=== PATIENT | female | born 1955 | race Caucasian/White ===

== ENCOUNTER → 2017-08-22 | Outpatient (CLI) | payer OTHER ==
--- NOTE | 2017-08-24 09:27 | MM ---
Reason for exam: screening (asymptomatic). Last mammogram was performed 1 year and 8 months ago. History: Patient is postmenopausal. Took hormonal contraceptives for 20 years beginning at age 18. Physical Findings: A clinical breast exam by your physician is recommended on an annual basis and results should be correlated with mammographic findings. MG 3D Screening Mammo W/Cad Bilateral CC and MLO view(s) were taken. Prior study comparison: December 23, 2015, bilateral MG 3d screening mammo w/cad. December 12, 2014, bilateral MG screening mammo w CAD. The breast tissue is heterogeneously dense. This may lower the sensitivity of mammography. Finding: There is a stable typically benign mass in the left breast dating back to 2012. No suspicious abnormality. No significant changes in finding since December 23, 2015 and December 12, 2014. ASSESSMENT: Benign, BI-RAD 2 RECOMMENDATION: Routine screening mammogram of both breasts in 1 year.
== END | disposition home or self-care (01) ==
LOC: RADMAMWWP 14:18
PROVIDERS: ATTEND Family Medicine
DX: Z12.31 Encounter for screening mammogram for malignant neoplasm of breast (principal)
CPT/HCPCS: 77063; G0202

== ENCOUNTER 2017-10-22 05:26 | Inpatient (IN) | payer OTHER ==
[2017-10-22] MEDS ORDERED: ONDANSETRON 4 MG/2 ML VIAL IVP STA (05:27)
[2017-10-22] MEDS ORDERED: SODIUM CHLORIDE 0.9% 500 ML IV STA (05:27)
--- NOTE | 2017-10-22 05:30 | ED ---
General Adult HPI - General Stated complaint: Abdominal Pain Time Seen by Provider: 10/22/17 05:26 Source: RN notes reviewed - History of Present Illness Initial comments: This is a 62-year-old female has past medical history significant for ulcerative colitis. Patient states yesterday she started having some diarrhea and early this morning she started having blood per rectum. Patient states she was quite a bit of blood more than she's ever had in the past. Patient states she has significant abdominal cramping but no specific area of pain. Patient denies any fever chills. Patient denies any dysuria hematuria urinary frequency. Patient denies any chest pain or difficulty breathing or shortness of breath. Patient denies any recent fever chills or cough. Patient denies lightheadedness or dizziness. - Related Data Home Medications Medication Instructions Recorded Confirmed ALPRAZolam [Xanax] 0.25 mg PO BID PRN 12/19/14 10/22/17 Atorvastatin [Lipitor] 80 mg PO HS 12/19/14 10/22/17 DULoxetine HCL [Cymbalta] 60 mg PO DAILY@1700 12/19/14 10/22/17 Multivitamins, Thera [Multivitamin 1 tab PO DAILY 12/19/14 10/22/17 (formulary)] Dicyclomine [Bentyl] 20 mg PO QID 01/21/15 10/22/17 Doxycycline Hyclate [Doxycycline 20 mg PO BID 01/21/15 10/22/17 Hyclate] Allergies Allergy/AdvReac Type Severity Reaction Status Date / Time No Known Allergies Allergy Verified 10/22/17 05:30 Review of Systems ROS Statement: Those systems with pertinent positive or pertinent negative responses have been documented in the HPI. ROS Other: All systems not noted in ROS Statement are negative. Past Medical History Past Medical History: COPD, Hyperlipidemia Additional Past Medical History / Comment(s): COLITIS, HX OF BLOOD IN STOOL. History of Any Multi-Drug Resistant Organisms: None Reported Past Surgical History: Tonsillectomy, Tubal Ligation Additional Past Surgical History / Comment(s): COLONOSCOPY Past Anesthesia/Blood Transfusion Reactions: No Reported Reaction Smoking Status: Current every day smoker - Past Family History Mother Additional Family Medical History / Comment(s): bipolar/manic depressive Father Family Medical History: Prostate Disorder General Exam - General Exam Comments Initial Comments: GENERAL: Patient is well-developed and well-nourished. Patient is nontoxic and well- hydrated and is in mild distress. ENT: Neck is soft and supple. No significant lymphadenopathy is noted. Oropharynx is clear. Moist mucous membranes. EYES: The sclera were anicteric and conjunctiva were pink and moist. Extraocular movements were intact and pupils were equal round and reactive to light. Eyelids were unremarkable. PULMONARY: Unlabored respirations. Good breath sounds bilaterally. No audible rales rhonchi or wheezing was noted. CARDIOVASCULAR: There is a regular rate and rhythm without any murmurs gallops or rubs. ABDOMEN: Soft and nontender with normal bowel sounds. No palpable organomegaly was noted. There is no palpable pulsatile mass. SKIN: Skin is clear with no lesions or rashes and otherwise unremarkable. NEUROLOGIC: Patient is alert and oriented x3. Cranial nerves II through XII are grossly intact. Motor and sensory are also intact. Normal speech, volume and content. Symmetrical smile. MUSCULOSKELETAL: Normal extremities with adequate strength and full range of motion. No lower extremity swelling or edema. No calf tenderness. LYMPHATICS: No significant lymphadenopathy is noted PSYCHIATRIC: Normal psychiatric evaluation. Normal interpersonal interactions appears functionally intact in deals appropriately with others. No signs of depression. Patient is mildly anxious Course Vital Signs 10/22/17 05:27 Temperature 98.8 F Pulse Rate 89 Respiratory 22 Rate Blood Pressure 150/65 O2 Sat by Pulse 99 Oximetry Medical Decision Making - Lab Data Result diagrams: 10/22/17 05:35 10/22/17 05:35 Lab Results 10/22/17 10/22/17 10/22/17 Range/Units 05:35 05:35 05:35 WBC 18.8 H (3.8-10.6) k/uL RBC 4.89 (3.80-5.40) m/uL Hgb 15.4 (11.4-16.0) gm/dL Hct 45.9 (34.0-46.0) % MCV 93.9 (80.0-100.0) fL MCH 31.4 (25.0-35.0) pg MCHC 33.5 (31.0-37.0) g/dL RDW 12.0 (11.5-15.5) % Plt Count 221 (150-450) k/uL Neutrophils % 93 % Lymphocytes % 4 % Monocytes % 2 % Eosinophils % 1 % Basophils % 0 % Neutrophils # 17.5 H (1.3-7.7) k/uL Lymphocytes # 0.8 L (1.0-4.8) k/uL Monocytes # 0.3 (0-1.0) k/uL Eosinophils # 0.1 (0-0.7) k/uL Basophils # 0.0 (0-0.2) k/uL PT (9.0-12.0) sec INR (<1.2) APTT (22.0-30.0) sec Sodium 139 (137-145) mmol/L Potassium 4.1 (3.5-5.1) mmol/L Chloride 102 (98-107) mmol/L Carbon Dioxide 21 L (22-30) mmol/L Anion Gap 16 mmol/L BUN 21 H (7-17) mg/dL Creatinine 0.76 (0.52-1.04) mg/dL Est GFR (MDRD) Af Amer >60 (>60 ml/min/1.73 sqM) Est GFR (MDRD) Non-Af >60 (>60 ml/min/1.73 sqM) Glucose 149 H (74-99) mg/dL Calcium 10.1 (8.4-10.2) mg/dL Total Bilirubin 1.0 (0.2-1.3) mg/dL AST 26 (14-36) U/L ALT 35 (9-52) U/L Alkaline Phosphatase 68 (38-126) U/L Total Creatine Kinase 97 (30-135) U/L CK-MB (CK-2) 1.1 (0.0-2.4) ng/mL CK-MB (CK-2) Rel Index 1.1 Troponin I <0.012 (0.000-0.034) ng/mL Total Protein 7.0 (6.3-8.2) g/dL Albumin 4.3 (3.5-5.0) g/dL 10/22/17 Range/Units 05:35 WBC (3.8-10.6) k/uL RBC (3.80-5.40) m/uL Hgb (11.4-16.0) gm/dL Hct (34.0-46.0) % MCV (80.0-100.0) fL MCH (25.0-35.0) pg MCHC (31.0-37.0) g/dL RDW (11.5-15.5) % Plt Count (150-450) k/uL Neutrophils % % Lymphocytes % % Monocytes % % Eosinophils % % Basophils % % Neutrophils # (1.3-7.7) k/uL Lymphocytes # (1.0-4.8) k/uL Monocytes # (0-1.0) k/uL Eosinophils # (0-0.7) k/uL Basophils # (0-0.2) k/uL PT 10.6 (9.0-12.0) sec INR 1.1 (<1.2) APTT 22.4 (22.0-30.0) sec Sodium (137-145) mmol/L Potassium (3.5-5.1) mmol/L Chloride (98-107) mmol/L Carbon Dioxide (22-30) mmol/L Anion Gap mmol/L BUN (7-17) mg/dL Creatinine (0.52-1.04) mg/dL Est GFR (MDRD) Af Amer (>60 ml/min/1.73 sqM) Est GFR (MDRD) Non-Af (>60 ml/min/1.73 sqM) Glucose (74-99) mg/dL Calcium (8.4-10.2) mg/dL Total Bilirubin (0.2-1.3) mg/dL AST (14-36) U/L ALT (9-52) U/L Alkaline Phosphatase (38-126) U/L Total Creatine Kinase (30-135) U/L CK-MB (CK-2) (0.0-2.4) ng/mL CK-MB (CK-2) Rel Index Troponin I (0.000-0.034) ng/mL Total Protein (6.3-8.2) g/dL Albumin (3.5-5.0) g/dL Disposition Clinical Impression: Colitis, GI bleed Disposition: ADMITTED IP TO THIS [facility] Referrals: Poncho Vaca MD [Primary Care Provider] - 1-2 days Time of Disposition: 06:24
[2017-10-22 05:43] LABS: Basophils % (A) 0 %; Eosinophils # (A) 0.1 k/uL (0-0.7); Eosinophils % (A) 1 %; HCT 45.9 % (34.0-46.0); HGB 15.4 gm/dL (11.4-16.0); Lymphocytes # (A) 0.8 k/uL (1.0-4.8); Lymphocytes % (A) 4 %; MCH 31.4 pg (25.0-35.0); MCHC 33.5 g/dL (31.0-37.0); MCV 93.9 fL (80.0-100.0); Mean Platelet Volume 7.6; Monocytes # (A) 0.3 k/uL (0-1.0); Monocytes % (A) 2 %; Neutrophils # (A) 17.5 k/uL (1.3-7.7); Neutrophils % (A) 93 %; Platelet Count 221 k/uL (150-450); RBC 4.89 m/uL (3.80-5.40); WBC 18.8 k/uL (3.8-10.6)
[2017-10-22 05:51] LABS: ALT 35 U/L (9-52); AST 26 U/L (14-36); Albumin 4.3 g/dL (3.5-5.0); Alkaline Phosphatase 68 U/L (38-126); Anion Gap 16 mmol/L; Blood Urea Nitrogen 21 mg/dL (7-17); Calcium 10.1 mg/dL (8.4-10.2); Carbon Dioxide 21 mmol/L (22-30); Chloride 102 mmol/L (98-107); Glucose 149 mg/dL (74-99); INR 1.1 (<1.2); Partial Thromboplastin Time 22.4 sec (22.0-30.0); Potassium 4.1 mmol/L (3.5-5.1); Prothrombin Time 10.6 sec (9.0-12.0); Sodium 139 mmol/L (137-145)
[2017-10-22 06:00] LABS: Creatine Kinase 97 U/L (30-135)
[2017-10-22 06:13] LABS: Creatine Kinase MB 1.1 ng/mL (0.0-2.4); Troponin I <0.012 ng/mL (0.000-0.034)
[2017-10-22] MEDS ORDERED: SODIUM CHLORIDE 0.9% 1,000 ML IV ONE (06:24)
[2017-10-22] MEDS ORDERED: methylPREDNISolone SOD SUCCI 125 MG/2 ML VIAL IV STA (06:25)
[2017-10-22 08:30] VITALS: BMI 19.8
[2017-10-22] MEDS: methylPREDNISolone SOD SUCCI 125 MG/2 ML VIAL IV SCH ×3 (11:38→23:47)
[2017-10-22 11:44] LABS: Glucose,Whole Blood 125 mg/dL (75-99)
[2017-10-22] MEDS ORDERED: Acetaminophen-Codeine 300-30mg TAB PO PRN (12:24)
[2017-10-22] MEDS ORDERED: HYOSCYAMINE SULFATE 0.125 MG TAB PO PRN (12:24)
[2017-10-22] MEDS ORDERED: INSULIN ASPART 100 UNIT/ML 1 ML 10 ML VIAL SQ SCH (12:30)
[2017-10-22 13:04] LABS: Basophils % (A) 0 %; Eosinophils % (A) 0 %; HGB 14.3 gm/dL (11.4-16.0); Lymphocytes # (A) 0.7 k/uL (1.0-4.8); Lymphocytes % (A) 4 %; MCH 31.4 pg (25.0-35.0); MCHC 33.3 g/dL (31.0-37.0); MCV 94.2 fL (80.0-100.0); Mean Platelet Volume 8.4; Monocytes # (A) 0.1 k/uL (0-1.0); Monocytes % (A) 1 %; Neutrophils # (A) 18.1 k/uL (1.3-7.7); Neutrophils % (A) 96 %; Platelet Count 206 k/uL (150-450); RBC 4.56 m/uL (3.80-5.40)
[2017-10-22] MEDS: INSULIN ASPART 100 UNIT/ML 1 ML 10 ML VIAL SQ SCH ×3 (13:10→20:26)
[2017-10-22] MEDS: DULoxetine HCL 60 MG CAPSULE.DR PO SCH (16:24)
[2017-10-22 17:09] LABS: Glucose,Whole Blood 142 mg/dL (75-99)
[2017-10-22] MEDS ORDERED: TEMAZEPAM 15 MG CAP PO PRN (18:48)
--- NOTE | 2017-10-22 19:34 | HP ---
HISTORY AND PHYSICAL DATE OF SERVICE: 10/22/2017 CHIEF COMPLAINT: Abdominal pain as well as bloody stools. HISTORY OF PRESENT ILLNESS: This 62-year-old woman with a past medical history of multiple medical problems, including COPD, hyperlipidemia, history of colitis, anxiety, depression being followed by Dr. Vaca in the outpatient setting, also previously had several episodes of colitis, at least 3. Patient was told to have ulcerative colitis, according to her, and now currently the patient is complaining that she had diarrhea. Subsequently, patient noted blood per rectum, diffuse abdominal pain. Patient came to [facility] and admitted for further evaluation and treatment. There is no history of fever, rigors. No history of headache, loss of consciousness, seizures. PAST MEDICAL HISTORY: History of COPD, hyperlipidemia, history of anxiety, depression. MEDICATIONS PRIOR TO ADMISSION: Include: 1. Doxycycline p.r.n. 2. Cymbalta 60 mg daily. 3. Xanax 0.5 b.i.d. p.r.n. 4. Multivitamins 1 p.o. daily. 5. Levsin 0.125 mg daily p.r.n. 6. Zithromax p.r.n. 7. Lipitor 80 mg q.h.s. 8. Tylenol No. 3, 1 tablet q.8 p.r.n. ALLERGIES: None. FAMILY HISTORY: History of prostate disorder, bipolar/manic-depressive disorder. SOCIAL HISTORY: Smoking on a daily basis. No alcohol intake. REVIEW OF SYSTEMS: ENT: No diminished hearing, diminished vision. CARDIOVASCULAR: No angina, palpitations. RESPIRATORY: No cough or hemoptysis. GI: No nausea or vomiting. : No dysuria. NERVOUS: No numbness or weakness. ALLERGY/IMMUNOLOGY: No asthma or hay fever. MUSCULOSKELETAL: As mentioned earlier. HEMATOLOGY/ONCOLOGY: No history of anemia. ENDOCRINE: As mentioned earlier. CONSTITUTIONAL: As mentioned earlier. DERMATOLOGY: Negative. RHEUMATOLOGY: Negative. PSYCHIATRY: As mentioned earlier. PHYSICAL EXAMINATION: Alert and oriented x3. Pulse 73, blood pressure 111/53, respirations 16, temperature 98.2, pulse ox 96% on room air. HEENT: Conjunctivae normal. Oral mucosa moist. NECK: No jugular venous distention. No carotid bruits. No lymph node enlargement. CARDIOVASCULAR: S1, S2 muffled. No S3. No S4. RESPIRATORY: Breath sounds diminished in the bases. A few scattered rhonchi. No crackles. ABDOMEN: Soft. Mild diffuse discomfort. No guarding. No rigidity. No mass palpable. LEGS: No edema. No swelling. NERVOUS SYSTEM: Higher functions as mentioned earlier. Moves all 4 limbs. No focal motor or sensory deficits. LYMPHATIC: No lymphadenopathy in neck or axillae. SKIN: No ulcer, rash or bleeding. LABS: WBC 19. Accu-Cheks noted. ASSESSMENT: 1. Diffuse abdominal pain as well as hematochezia, possible acute ulcerative colitis acute exacerbation. 2. Previous episode of colitis. 3. Increased random blood sugar. 4. Hyperlipidemia. 5. History of anxiety, depression. 6. History of nicotine dependence. RECOMMENDATIONS AND DISCUSSION: In this 62-year-old woman who presented with multiple complex medical problems, will monitor the patient closely. Continue the current medical management and symptomatic treatment. Otherwise, IV steroids initiated, gastroenterology consultation. We will obtain basic labs. Prognosis guarded because of multiple complex medical issues. C. diff. will be ordered also. Further recommendations to follow. See orders for further details. MMODL / IJN: [id number] /
[2017-10-22] MEDS: NICOTINE 14MG/24HR PATCH TRANSDERM SCH (20:21)
[2017-10-22 20:22] LABS: Glucose,Whole Blood 141 mg/dL (75-99)
[2017-10-22] MEDS: ATORVASTATIN 80 MG TAB PO SCH (20:25)
[2017-10-22] MEDS: HEPARIN SODIUM,PORCINE 5,000 UNIT/ML 1 ML VIAL SQ SCH (20:25)
[2017-10-23] MEDS: methylPREDNISolone SOD SUCCI 125 MG/2 ML VIAL IV SCH ×2 (05:40→12:00)
[2017-10-23 05:42] LABS: HCT 42.1 % (34.0-46.0); MCH 31.1 pg (25.0-35.0); MCHC 33.3 g/dL (31.0-37.0); MCV 93.4 fL (80.0-100.0); Mean Platelet Volume 8.7; Platelet Count 216 k/uL (150-450)
[2017-10-23 05:44] LABS: WBC 25.2 k/uL (3.8-10.6)
[2017-10-23 05:50] LABS: Anion Gap 9 mmol/L; Blood Urea Nitrogen 14 mg/dL (7-17); Calcium 9.6 mg/dL (8.4-10.2); Carbon Dioxide 25 mmol/L (22-30); Chloride 107 mmol/L (98-107); Glucose 123 mg/dL (74-99); Potassium 4.3 mmol/L (3.5-5.1); Sodium 141 mmol/L (137-145)
[2017-10-23 06:00] LABS: Lymphocytes # (M) 1.76 k/uL (1.0-4.8); Monocytes # (M) 1.01 k/uL (0-1.0); Neutrophils # (M) 22.43 k/uL (1.3-7.7); Neutrophils % (M) 89 %; Nucleated Red Blood Cells 0 /100 WBC (0-0); Total Cells Counted 100
[2017-10-23 07:41] LABS: Glucose,Whole Blood 129 mg/dL (75-99)
[2017-10-23] MEDS: NICOTINE 14MG/24HR PATCH TRANSDERM SCH ×2 (08:20→08:24)
[2017-10-23] MEDS: PANTOPRAZOLE 40 MG TABLET PO SCH (08:20)
[2017-10-23] MEDS: MULTIVITAMINS, THERA 1 EACH TAB PO SCH (08:20)
[2017-10-23] MEDS: HEPARIN SODIUM,PORCINE 5,000 UNIT/ML 1 ML VIAL SQ SCH ×3 (08:20→20:43)
[2017-10-23] MEDS: INSULIN ASPART 100 UNIT/ML 1 ML 10 ML VIAL SQ SCH ×4 (08:22→20:43)
[2017-10-23 11:36] LABS: Glucose,Whole Blood 157 mg/dL (75-99)
[2017-10-23] MEDS: ALPRAZolam 0.25 MG TAB PO PRN (13:03)
[2017-10-23] MEDS: IOHEXOL 350 MG/ML 25 ML BOTTLE (ORAL USE) PO PRN ×2 (13:54→14:20)
--- NOTE | 2017-10-23 16:27 | CT ---
EXAMINATION TYPE: CT abdomen pelvis wo con DATE OF EXAM: 10/23/2017 COMPARISON: December 19, 2014 HISTORY: Generalized pain with rectal bleeding. History of ulcerative colitis CT DLP: 214 mGycm Automated exposure control for dose reduction was used. TECHNIQUE: Helical acquisition of images was performed from the lung bases through the pelvis. FINDINGS: Evaluation of the visceral organs is suboptimal without the use of intravenous contrast. The liver, p ancreas, spleen, adrenal glands, and kidneys are grossly unremarkable. The gallbladder is unremarkabl e. There is no free intraperitoneal air or free fluid. The appendix is not definitively visualized. Urinary bladder is unremarkable. The uterus is present. There is no evidence of a bowel obstruction. No definite abnormally thickened loops of bowel are identified. Some colonic wall thickening is ident ified in the region of the rectum which could be due to nondistention or known history of colitis. Aorta is not dilated. No osteolytic or osteoblastic lesions are identified. Mild levoconvex curvature lumbar spine could be positional. IMPRESSION: Rectal wall thickening could be due to nondistention or colitis.
[2017-10-23] MEDS: DULoxetine HCL 60 MG CAPSULE.DR PO SCH (16:40)
[2017-10-23] MEDS: methylPREDNISolone SOD SUCCI 40 MG/ML 1 ML VIAL IV SCH ×2 (16:42→23:56)
[2017-10-23 17:05] LABS: Glucose,Whole Blood 105 mg/dL (75-99)
[2017-10-23 20:28] LABS: Glucose,Whole Blood 136 mg/dL (75-99)
[2017-10-23] MEDS: ATORVASTATIN 80 MG TAB PO SCH (20:43)
--- NOTE | 2017-10-23 21:50 | PN ---
PROGRESS NOTE DATE OF SERVICE: 10/23/2017 This 62-year-old woman was admitted with abdominal pain, was being evaluated for colitis, abdominal pelvis CT. The patient has abdominal pain and some diarrhea also. The CT scan of the abdomen showed rectal wall thickening secondary to possibly colitis. No chest pain. No palpitations. No fever. EXAM: Alert and oriented x3. Pulse is 83, blood pressure 140/60, respirations 16, temperature 99 degrees, pulse ox 97% on room air. HEENT: Conjunctivae normal. Neck: No jugular venous distention. Cardiovascular: S1, S2 muffled. Respiratory: Breath sounds diminished in the bases. No rhonchi and no crackles. Abdomen is soft. Mild diffuse tenderness present. No guarding. No rigidity. NERVOUS SYSTEM: No focal deficits. LABS: Accu-Cheks 157, 105. ASSESSMENT: 1. Diffuse abdominal pain, hematochezia, possible acute ulcerative colitis, acute exacerbation. 2. Rectal wall thickening in the CT scan. 3. Previous episodes of colitis. 4. Increased random blood sugar. 5. Hyperlipidemia. 6. History of anxiety, depression. 7. History of nicotine dependence. RECOMMENDATIONS AND DISCUSSION: Recommend to continue current medications, management and symptomatic treatment. Discussed with gastroenterology. Possible endoscopies for definitive diagnosis. Otherwise continue steroids. Monitor blood sugars. Repeat labs. CT scan reviewed. Discussed with the patient. Understands and agrees. Further recommendations to follow. MMODL / IJN: [id number] / MTDD
--- NOTE | 2017-10-24 00:27 | P.CONS ---
History of Present Illness - Reason for Consult Consult date: 10/23/17 Colitis - History of Present Illness The patient is a 62-year-old female with past medical history significant for episodes of colitis not maintained on fci therapy, started to experience diarrhea the day before admission and early the morning of admission she started having blood per rectum. Patient states there was quite a bit of blood more than she had on two prior episodes she had in the past. Patient states she has significant abdominal cramping but no specific area of pain. Patient denies any fever chills. Patient denies any dysuria, hematuria, urinary frequency. Patient denies any chest pain or difficulty breathing or shortness of breath. Patient denies any recent fever chills or cough. Patient denies lightheadedness or dizziness. She had a CT today that showed distal colitis. Review of Systems Constitutional: Denies fever, chills, sweats, weight gain, or loss. HEENT: Negative for migraines, blurred vision or loss, earaches, drainage, tinnitus, oral mucosal lesions, dysphagia, or odynophagia. Cardiac: Negative for chest pain, arrhythmias, or palpitation. Respiratory: Negative for shortness of breath, hemoptysis, cough, or sputum production. Gastrointestinal: See HPI for pertinent findings. Genitourinary: Negative for hematuria, urgency, frequency, polyuria, dysuria. Musculoskeletal: Negative for muscle aches, swelling, arthritis, and arthralgias. Neurologic: Negative for stroke or TIA. Endocrine: Negative for thyroid problems. Skin: Negative for rash or itching. Psychiatric: Negative history for depression and anxiety Past Medical History Past Medical History: COPD, Hyperlipidemia Additional Past Medical History / Comment(s): COLITIS, HX OF BLOOD IN STOOL. History of Any Multi-Drug Resistant Organisms: None Reported Past Surgical History: Tonsillectomy, Tubal Ligation Additional Past Surgical History / Comment(s): COLONOSCOPY Past Anesthesia/Blood Transfusion Reactions: No Reported Reaction Past Psychological History: Anxiety, Depression Smoking Status: Current every day smoker Past Alcohol Use History: None Reported Additional Past Alcohol Use History / Comment(s): Started smoking at age 15 smokes 1/2 ppd Past Drug Use History: None Reported - Past Family History Mother Family Medical History: No Reported History Additional Family Medical History / Comment(s): bipolar/manic depressive Father Family Medical History: Prostate Disorder Medications and Allergies Home Medications Medication Instructions Recorded Confirmed Type ALPRAZolam [Xanax] 0.25 mg PO BID PRN 12/19/14 10/22/17 History Atorvastatin [Lipitor] 80 mg PO HS 12/19/14 10/22/17 History DULoxetine HCL [Cymbalta] 60 mg PO DAILY@1700 12/19/14 10/22/17 History Multivitamins, Thera [Multivitamin 1 tab PO DAILY 12/19/14 10/22/17 History (formulary)] Doxycycline Hyclate [Doxycycline 20 mg PO DIRECTED 01/21/15 10/22/17 History Hyclate] Acetaminophen-Codeine 300-30mg 1 tab PO Q8H PRN 10/22/17 10/22/17 History [Tylenol #3] Azithromycin [Zithromax Z-pack] See Taper PO DIRECTED 10/22/17 10/22/17 History Hyoscyamine Sulfate [Levsin] 0.125 mg PO DAILY PRN 10/22/17 10/22/17 History Allergies Allergy/AdvReac Type Severity Reaction Status Date / Time No Known Allergies Allergy Verified 10/22/17 11:00 Physical Exam Vitals: Vital Signs Temp Pulse Resp BP Pulse Ox 10/23/17 15:02 83 16 10/23/17 08:21 99.0 F 83 16 144/66 96 10/23/17 08:00 83 16 10/22/17 16:48 96 Intake and Output 10/23/17 10/23/17 10/23/17 06:59 14:59 22:59 Intake Total 1100 240 Balance 1100 240 Intake: Intake, IV Titration 800 Amount Sodium Chloride 0.9% 1, 800 000 ml @ 100 mls/hr IV . Q10H ONE Rx#:[id number] Oral 300 240 Other: # Voids 2 2 General appearance: The patient is alert, oriented, in no acute distress. HET: Head is normocephalic and atraumatic. Pupils are equal and reactive. Oropharynx is clear without lesions. Neck: Supple without lymphadenopathy. Trachea midline. Heart: S1 S2. Regular rate and rhythm. Lungs: No crackles or wheezes are heard. Abdomen: Soft, nontender, nondistended with bowel sounds. No peritoneal signs. No palpable organomegaly or masses. Extremities: Normal skin color and turgor. No cyanosis, rash, ulceration, clubbing, or edema. Radial and pedal pulses are 2/4 bilaterally. Neurological: No focal deficits. Strength and sensation are grossly intact. Results CBC & Chem 7: 10/23/17 05:24 10/23/17 05:24 Labs: Abnormal Lab Results - Last 24 Hours (Table) 10/22/17 10/22/17 10/23/17 Range/Units 17:01 20:21 05:24 WBC 25.2 H* (3.8-10.6) k/uL Neutrophils # (Manual) 22.43 H (1.3-7.7) k/uL Monocytes # (Manual) 1.01 H (0-1.0) k/uL Glucose (74-99) mg/dL POC Glucose (mg/dL) 142 H 141 H (75-99) mg/dL 10/23/17 10/23/17 10/23/17 Range/Units 05:24 07:11 11:33 WBC (3.8-10.6) k/uL Neutrophils # (Manual) (1.3-7.7) k/uL Monocytes # (Manual) (0-1.0) k/uL Glucose 123 H (74-99) mg/dL POC Glucose (mg/dL) 129 H 157 H (75-99) mg/dL Assessment and Plan Assessment: Diarrhea and rectal bleeding could be related to infectious, ischemic or self limited colitis. Doubt ulcerative colitis. Plan: Agrree with your current management. As per our discussion, I will plan a colonoscopy, if she is agreeable, to define the etiology with more confidence and guide future therapy.
[2017-10-24 07:02] LABS: Glucose,Whole Blood 134 mg/dL (75-99)
[2017-10-24 07:54] LABS: Basophils % (A) 0 %; Eosinophils % (A) 0 %; HCT 45.5 % (34.0-46.0); HGB 14.7 gm/dL (11.4-16.0); Lymphocytes # (A) 0.9 k/uL (1.0-4.8); Lymphocytes % (A) 4 %; MCH 30.5 pg (25.0-35.0); MCHC 32.3 g/dL (31.0-37.0); MCV 94.3 fL (80.0-100.0); Mean Platelet Volume 8.6; Monocytes # (A) 0.5 k/uL (0-1.0); Monocytes % (A) 2 %; Neutrophils # (A) 21.8 k/uL (1.3-7.7); Neutrophils % (A) 94 %; Platelet Count 231 k/uL (150-450); RBC 4.83 m/uL (3.80-5.40); RDW 13.4 % (11.5-15.5); WBC 23.2 k/uL (3.8-10.6)
[2017-10-24] MEDS: INSULIN ASPART 100 UNIT/ML 1 ML 10 ML VIAL SQ SCH ×4 (07:54→22:04)
[2017-10-24] MEDS: HEPARIN SODIUM,PORCINE 5,000 UNIT/ML 1 ML VIAL SQ SCH ×2 (07:56→22:04)
[2017-10-24] MEDS: NICOTINE 14MG/24HR PATCH TRANSDERM SCH (07:57)
[2017-10-24] MEDS: MULTIVITAMINS, THERA 1 EACH TAB PO SCH (07:57)
[2017-10-24] MEDS: PANTOPRAZOLE 40 MG TABLET PO SCH (07:57)
[2017-10-24] MEDS: methylPREDNISolone SOD SUCCI 40 MG/ML 1 ML VIAL IV SCH ×2 (07:57→17:46)
[2017-10-24 08:16] LABS: Anion Gap 10 mmol/L; Blood Urea Nitrogen 18 mg/dL (7-17); Carbon Dioxide 27 mmol/L (22-30); Chloride 103 mmol/L (98-107); Glucose 119 mg/dL (74-99); Sodium 140 mmol/L (137-145)
[2017-10-24 11:21] LABS: Glucose,Whole Blood 124 mg/dL (75-99)
[2017-10-24] MEDS ORDERED: PEG 3350-NA SULF,BICARB,CL/KCL 4,000 ML BOTTLE PO ONE (13:41)
[2017-10-24 17:22] LABS: Glucose,Whole Blood 122 mg/dL (75-99)
[2017-10-24] MEDS: DULoxetine HCL 60 MG CAPSULE.DR PO SCH (17:46)
[2017-10-24 20:19] LABS: Glucose,Whole Blood 124 mg/dL (75-99)
[2017-10-24] MEDS ORDERED: ONDANSETRON 4 MG/2 ML VIAL IVP PRN (21:56)
[2017-10-24] MEDS: ATORVASTATIN 80 MG TAB PO SCH (22:03)
[2017-10-24] MEDS: ALPRAZolam 0.25 MG TAB PO PRN (22:05)
--- NOTE | 2017-10-24 22:39 | PN ---
PROGRESS NOTE DATE OF SERVICE: 10/24/2017. INTERVAL HISTORY: This 62-year-old woman who was admitted with abdominal pain, diffuse abdominal pain, hematochezia, also had possible acute ulcerative colitis. The patient also had GI bleed. Patient also did not follow the preparation yesterday. Dr. Tran is planning endoscopes. No chest pain. No palpitation. EXAM: Alert and oriented times three. Pulse 67. Blood pressure 98/52, respirations 16, temperature 99.2, pulse ox 94% room air. HEENT: Conjunctivae normal. NECK: No jugular venous distention. Cardiovascular: S1, S2 muffled. Respiratory: Breath sounds diminished in the bases. No rhonchi. No crackles. Abdomen soft. Mild diffuse tenderness. No guarding. No rigidity. No mass palpable. Legs are no edema. No swelling. LABS: WBC 23.2. Neutrophils are predominant. Glucose noted. ASSESSMENT: 1. Diffuse abdominal pain, hematochezia, possible acute ulcerative colitis, acute exacerbation, rectal wall thickening in the CT scan. 2. Previous episodes of colitis. 3. Increased random blood sugar. 4. Hyperlipidemia. 5. History of anxiety and depression. 6. History of nicotine dependence. RECOMMENDATION AND DISCUSSION: Continue current medications, continue symptomatic treatment. Continue with steroids. Continue with colonoscopy preparation. Closely follow with Dr. Tran. Guarded prognosis. Further recommendations to follow. MMODL / IJN: [id number] /
[2017-10-25] MEDS: methylPREDNISolone SOD SUCCI 40 MG/ML 1 ML VIAL IV SCH ×2 (00:04→08:06)
[2017-10-25 07:32] LABS: Glucose,Whole Blood 100 mg/dL (75-99)
[2017-10-25 07:53] VITALS: BP 136/69; PULSE 77; RESP 18; TEMP 98.2
[2017-10-25] MEDS: NICOTINE 14MG/24HR PATCH TRANSDERM SCH (08:01)
[2017-10-25] MEDS: INSULIN ASPART 100 UNIT/ML 1 ML 10 ML VIAL SQ SCH ×2 (08:01→12:37)
[2017-10-25] MEDS: MULTIVITAMINS, THERA 1 EACH TAB PO SCH (08:04)
[2017-10-25] MEDS: HEPARIN SODIUM,PORCINE 5,000 UNIT/ML 1 ML VIAL SQ SCH (08:04)
[2017-10-25] MEDS: PANTOPRAZOLE 40 MG TABLET PO SCH (08:04)
[2017-10-25 08:28] LABS: Basophils % (A) 0 %; Eosinophils % (A) 0 %; HCT 44.8 % (34.0-46.0); Lymphocytes # (A) 2.2 k/uL (1.0-4.8); Lymphocytes % (A) 13 %; MCH 31.2 pg (25.0-35.0); MCHC 33.5 g/dL (31.0-37.0); MCV 93.2 fL (80.0-100.0); Monocytes # (A) 0.8 k/uL (0-1.0); Monocytes % (A) 5 %; Neutrophils # (A) 13.7 k/uL (1.3-7.7); Neutrophils % (A) 81 %; Platelet Count 214 k/uL (150-450); RBC 4.81 m/uL (3.80-5.40)
[2017-10-25 08:56] LABS: Anion Gap 10 mmol/L; Blood Urea Nitrogen 21 mg/dL (7-17); Calcium 9.8 mg/dL (8.4-10.2); Carbon Dioxide 30 mmol/L (22-30); Chloride 100 mmol/L (98-107); Glucose 90 mg/dL (74-99); Potassium 3.7 mmol/L (3.5-5.1); Sodium 140 mmol/L (137-145)
[2017-10-25 11:30] LABS: Glucose,Whole Blood 137 mg/dL (75-99)
--- NOTE | 2017-10-26 08:53 | DS ---
DISCHARGE SUMMARY FINAL DIAGNOSES: 1. Diffuse abdominal pain, hematochezia, possible acute colitis, possible ulcerative colitis, acute exacerbation with rectal wall thickening in the CT scan. 2. History of previous episodes of colitis. 3. Increased random blood sugar. 4. Hyperlipidemia. 5. History of anxiety, depression. 6. History of nicotine dependence. DISCHARGE DISPOSITION: The patient is being discharged in stable condition. Guarded prognosis. The patient unable to complete the pre exam pre endoscopy preparation. Gastroenterology saw the patient and recommended outpatient followup. HISTORY OF PRESENT ILLNESS: This 62-year-old with past medical history of multiple medical problems admitted with abdominal pain, diarrhea, hematochezia. Patient treated symptomatically with steroids. The patient improved significantly. On exam, vital signs are stable. Cardiovascular: S1, S2. Abdomen as mentioned earlier. Soft. Nervous System: No focal deficits. As mentioned earlier, gastroenterology recommended outpatient followup and endoscopies. The WBC 17. DISCHARGE ADVICE AND MEDICATIONS: 1. Discharge diet is a soft bland diet. 2. Activity limited until follow up. 3. Follow up with Dr. Vaca in 2-3 days. 4. Follow up with Dr. Tran as advised. MEDICATIONS ARE: 1. Tylenol #3 1 tablet q.i.d. p.r.n. 2. Xanax 0.25 b.i.d. 3. Lipitor 80 mg q.h.s. 4. Zithromax Z-andrez as before. 5. Cymbalta 60 mg. 6. Levsin 0.1 daily. 7. Habitrol 14 daily. 8. Protonix 40 mg daily. 9. Prednisone taper, 40 for 5 days, 30 for five days, 20 for five days and 10 for 5 days. Outpatient for followup endoscopies. MMODL / IJN: [id number] /
== END 2017-10-25 15:11 | disposition home or self-care (01) | DRG 387 ==
LOC: EC 05:26 → 5MS5E 06:24
PROVIDERS: ADMIT Hospitalist; ATTEND Hospitalist
DX: K51.911 Ulcerative colitis, unspecified with rectal bleeding (principal); E78.5 Hyperlipidemia, unspecified; K52.9 Noninfective gastroenteritis and colitis, unspecified; J44.9 Chronic obstructive pulmonary disease, unspecified; F32.9 Major depressive disorder, single episode, unspecified; F41.9 Anxiety disorder, unspecified; F17.200 Nicotine dependence, unspecified, uncomplicated; Z79.899 Other long term (current) drug therapy
CPT/HCPCS: 36415; 74176; 80048; 80053; 82550; 82553; 83036; 84484; 85025; 85610; 85652; 85730; 86140; 86850; 86870; 86880; 86900; 86901; 87324; 89055; 94760; 96374; 96375; 99285

== ENCOUNTER 2018-01-19 12:39 | Inpatient (IN) | payer OTHER ==
[2018-01-19] MEDS ORDERED: IPRATROPIUM 0.5 MG/2.5 ML NEBU INHALATION STA (12:49)
[2018-01-19] MEDS ORDERED: SODIUM CHLORIDE 0.9% 500 ML IV STA (12:49)
[2018-01-19] MEDS ORDERED: ALBUTEROL NEBULIZED 2.5 MG/3 ML INHALATION STA (12:49)
--- NOTE | 2018-01-19 12:55 | ED ---
General Adult HPI - General Chief complaint: Shortness of Breath Stated complaint: SOB Time Seen by Provider: 01/19/18 12:40 Source: EMS, RN notes reviewed Mode of arrival: EMS Limitations: no limitations - History of Present Illness Initial comments: This is a 62-year-old female with past medical history significant for COPD. Patient states she stopped smoking a year ago. Patient states she has an exacerbation of her COPD and over a year. Patient comes in today because she's had shortness of breath the last week. Patient states she is coughing but no sputum production. Patient states she has had the chills and one time she had a fever of 99. Patient denies any chest pain or palpitations. Patient denies any abdominal pain patient denies nausea vomiting diarrhea. Patient denies headache patient denies numbness weakness. Patient denies any motor or calf pain. Patient denies any lightheadedness dizziness or nursing about so. - Related Data Home Medications Medication Instructions Recorded Confirmed ALPRAZolam [Xanax] 0.25 mg PO BID PRN 12/19/14 01/19/18 Atorvastatin [Lipitor] 80 mg PO HS 12/19/14 01/19/18 DULoxetine HCL [Cymbalta] 60 mg PO BID 12/19/14 01/19/18 Hyoscyamine Sulfate [Levsin] 0.125 mg PO DAILY PRN 10/22/17 01/19/18 Doxycycline Hyclate 20mg Tab 20 mg PO BID 01/19/18 01/19/18 Ibuprofen [Motrin] 800 mg PO TID PRN 01/19/18 01/19/18 valACYclovir HCL [Valtrex] 1,000 mg PO DAILY PRN 01/19/18 01/19/18 Allergies Allergy/AdvReac Type Severity Reaction Status Date / Time No Known Allergies Allergy Verified 01/19/18 12:58 Review of Systems ROS Statement: Those systems with pertinent positive or pertinent negative responses have been documented in the HPI. ROS Other: All systems not noted in ROS Statement are negative. Past Medical History Past Medical History: COPD, Hyperlipidemia Additional Past Medical History / Comment(s): COLITIS, HX OF BLOOD IN STOOL. History of Any Multi-Drug Resistant Organisms: None Reported Past Surgical History: Tonsillectomy, Tubal Ligation Additional Past Surgical History / Comment(s): COLONOSCOPY Past Anesthesia/Blood Transfusion Reactions: No Reported Reaction Past Psychological History: Anxiety, Depression Smoking Status: Former smoker Past Alcohol Use History: Rare Past Drug Use History: None Reported - Past Family History Mother Family Medical History: No Reported History Additional Family Medical History / Comment(s): bipolar/manic depressive Father Family Medical History: Prostate Disorder General Exam - General Exam Comments Initial Comments: GENERAL: Patient is well-developed and well-nourished. Patient is nontoxic and well- hydrated and is in mild distress. ENT: Neck is soft and supple. No significant lymphadenopathy is noted. Oropharynx is clear. Moist mucous membranes. Neck has full range of motion without eliciting any pain. EYES: The sclera were anicteric and conjunctiva were pink and moist. Extraocular movements were intact and pupils were equal round and reactive to light. Eyelids were unremarkable. PULMONARY: Patient has expiratory wheezing. CARDIOVASCULAR: There is a regular rate and rhythm without any murmurs gallops or rubs. ABDOMEN: Soft and nontender with normal bowel sounds. No palpable organomegaly was noted. There is no palpable pulsatile mass. SKIN: Skin is clear with no lesions or rashes and otherwise unremarkable. NEUROLOGIC: Patient is alert and oriented x3. Cranial nerves II through XII are grossly intact. Motor and sensory are also intact. Normal speech, volume and content. Symmetrical smile. MUSCULOSKELETAL: Normal extremities with adequate strength and full range of motion. No lower extremity swelling or edema. No calf tenderness. LYMPHATICS: No significant lymphadenopathy is noted PSYCHIATRIC: Normal psychiatric evaluation. Normal interpersonal interactions appears functionally intact in deals appropriately with others. No signs of depression. No signs of anxiety. Limitations: no limitations Course Vital Signs 01/19/18 01/19/18 01/19/18 12:40 13:17 13:18 Temperature 98.6 F Pulse Rate 100 87 Pulse Rate [ Pulse Oximetery ] Respiratory 22 22 Rate Blood Pressure 103/61 Blood Pressure [Left Arm] O2 Sat by Pulse 87 L Oximetry 01/19/18 01/19/18 01/19/18 13:37 14:15 15:24 Temperature 98.0 F Pulse Rate 91 90 93 Pulse Rate [ Pulse Oximetery ] Respiratory 20 18 Rate Blood Pressure 111/59 105/59 Blood Pressure [Left Arm] O2 Sat by Pulse 92 L 98 Oximetry 01/19/18 15:30 Temperature 97.3 F L Pulse Rate Pulse Rate [ 87 Pulse Oximetery ] Respiratory 18 Rate Blood Pressure Blood Pressure 122/65 [Left Arm] O2 Sat by Pulse 92 L Oximetry Medical Decision Making - Medical Decision Making EKG shows normal sinus rhythm at 84 bpm UT interval 216 QRS is 94 Q-T intervals 400 QTC is 472. Patient's EKG shows no ST segment elevation or depression or T wave abnormalities are noted Chest x-ray shows no acute abnormality. Patient received steroids in the ambulance and multiple breathing treatments. Patient is still wheezing but much improved. I spoke with Dr. Espinoza he agreed to admit the patient admitted the patient I wrote admitting orders. - Lab Data Result diagrams: 01/19/18 13:15 01/19/18 13:15 Lab Results 01/19/18 01/19/18 01/19/18 Range/Units 13:15 13:15 13:15 WBC 11.2 H (3.8-10.6) k/uL RBC 4.61 (3.80-5.40) m/uL Hgb 14.5 (11.4-16.0) gm/dL Hct 41.0 (34.0-46.0) % MCV 88.8 (80.0-100.0) fL MCH 31.5 (25.0-35.0) pg MCHC 35.5 (31.0-37.0) g/dL RDW 12.6 (11.5-15.5) % Plt Count 118 L (150-450) k/uL Neutrophils % 85 % Lymphocytes % 8 % Monocytes % 5 % Eosinophils % 1 % Basophils % 0 % Neutrophils # 9.4 H (1.3-7.7) k/uL Lymphocytes # 0.9 L (1.0-4.8) k/uL Monocytes # 0.6 (0-1.0) k/uL Eosinophils # 0.1 (0-0.7) k/uL Basophils # 0.0 (0-0.2) k/uL PT (9.0-12.0) sec INR (<1.2) APTT (22.0-30.0) sec Sodium 133 L (137-145) mmol/L Potassium 3.2 L (3.5-5.1) mmol/L Chloride 97 L (98-107) mmol/L Carbon Dioxide 21 L (22-30) mmol/L Anion Gap 15 mmol/L BUN 25 H (7-17) mg/dL Creatinine 0.66 (0.52-1.04) mg/dL Est GFR (CKD-EPI)AfAm >90 (>60 ml/min/1.73 sqM) Est GFR (CKD-EPI)NonAf >90 (>60 ml/min/1.73 sqM) Glucose 139 H (74-99) mg/dL Calcium 8.2 L (8.4-10.2) mg/dL Magnesium 1.8 (1.6-2.3) mg/dL Total Bilirubin 0.5 (0.2-1.3) mg/dL AST 32 (14-36) U/L ALT 33 (9-52) U/L Alkaline Phosphatase 28 L (38-126) U/L Total Creatine Kinase 155 H (30-135) U/L CK-MB (CK-2) 1.4 (0.0-2.4) ng/mL CK-MB (CK-2) Rel Index 0.9 Troponin I <0.012 (0.000-0.034) ng/mL Total Protein 6.0 L (6.3-8.2) g/dL Albumin 3.6 (3.5-5.0) g/dL 01/19/18 Range/Units 13:15 WBC (3.8-10.6) k/uL RBC (3.80-5.40) m/uL Hgb (11.4-16.0) gm/dL Hct (34.0-46.0) % MCV (80.0-100.0) fL MCH (25.0-35.0) pg MCHC (31.0-37.0) g/dL RDW (11.5-15.5) % Plt Count (150-450) k/uL Neutrophils % % Lymphocytes % % Monocytes % % Eosinophils % % Basophils % % Neutrophils # (1.3-7.7) k/uL Lymphocytes # (1.0-4.8) k/uL Monocytes # (0-1.0) k/uL Eosinophils # (0-0.7) k/uL Basophils # (0-0.2) k/uL PT 10.1 (9.0-12.0) sec INR 1.0 (<1.2) APTT 28.7 (22.0-30.0) sec Sodium (137-145) mmol/L Potassium (3.5-5.1) mmol/L Chloride (98-107) mmol/L Carbon Dioxide (22-30) mmol/L Anion Gap mmol/L BUN (7-17) mg/dL Creatinine (0.52-1.04) mg/dL Est GFR (CKD-EPI)AfAm (>60 ml/min/1.73 sqM) Est GFR (CKD-EPI)NonAf (>60 ml/min/1.73 sqM) Glucose (74-99) mg/dL Calcium (8.4-10.2) mg/dL Magnesium (1.6-2.3) mg/dL Total Bilirubin (0.2-1.3) mg/dL AST (14-36) U/L ALT (9-52) U/L Alkaline Phosphatase (38-126) U/L Total Creatine Kinase (30-135) U/L CK-MB (CK-2) (0.0-2.4) ng/mL CK-MB (CK-2) Rel Index Troponin I (0.000-0.034) ng/mL Total Protein (6.3-8.2) g/dL Albumin (3.5-5.0) g/dL Disposition Clinical Impression: COPD with acute exacerbation Disposition: ADMITTED IP TO THIS HOSP Is patient prescribed a controlled substance at d/c from ED?: No Time of Disposition: 14:28
[2018-01-19 13:26] LABS: Basophils % (A) 0 %; Eosinophils # (A) 0.1 k/uL (0-0.7); Eosinophils % (A) 1 %; HGB 14.5 gm/dL (11.4-16.0); Lymphocytes # (A) 0.9 k/uL (1.0-4.8); Lymphocytes % (A) 8 %; MCH 31.5 pg (25.0-35.0); MCHC 35.5 g/dL (31.0-37.0); MCV 88.8 fL (80.0-100.0); Mean Platelet Volume 9.1; Monocytes # (A) 0.6 k/uL (0-1.0); Monocytes % (A) 5 %; Neutrophils # (A) 9.4 k/uL (1.3-7.7); Neutrophils % (A) 85 %; Platelet Count 118 k/uL (150-450); RBC 4.61 m/uL (3.80-5.40); RDW 12.6 % (11.5-15.5); WBC 11.2 k/uL (3.8-10.6)
[2018-01-19 13:34] LABS: ALT 33 U/L (9-52); AST 32 U/L (14-36); Albumin 3.6 g/dL (3.5-5.0); Alkaline Phosphatase 28 U/L (38-126); Anion Gap 15 mmol/L; Blood Urea Nitrogen 25 mg/dL (7-17); Calcium 8.2 mg/dL (8.4-10.2); Carbon Dioxide 21 mmol/L (22-30); Chloride 97 mmol/L (98-107); Glucose 139 mg/dL (74-99); Magnesium 1.8 mg/dL (1.6-2.3); Potassium 3.2 mmol/L (3.5-5.1); Sodium 133 mmol/L (137-145); Total Bilirubin 0.5 mg/dL (0.2-1.3)
[2018-01-19 13:37] LABS: Partial Thromboplastin Time 28.7 sec (22.0-30.0); Prothrombin Time 10.1 sec (9.0-12.0)
[2018-01-19 13:54] LABS: Creatine Kinase 155 U/L (30-135)
[2018-01-19 14:05] LABS: Creatine Kinase MB 1.4 ng/mL (0.0-2.4); Troponin I <0.012 ng/mL (0.000-0.034)
--- NOTE | 2018-01-19 14:15 | XR ---
EXAMINATION TYPE: XR chest 2V DATE OF EXAM: 01/19/2018 COMPARISON: Prior chest 08/15/2000 and HISTORY: Difficulty breathing, shortness of breath TECHNIQUE: Frontal and lateral views of the chest are obtained. FINDINGS: There is no focal air space opacity, pleural effusion, or pneumothorax seen. The cardiac silhouette size is within normal limits. There are prominent lung volumes compatible with underlying COPD. There is interval improvement in aeration at the right lung base. There are overlying cardiac leads. Spinal curvature is similar. The osseous structures are intact. IMPRESSION: No acute cardiopulmonary process.
[2018-01-19] MEDS ORDERED: IPRATROPIUM-ALBUTEROL 3 ML NEB INHALATION SCH ×2 (16:00→20:00)
[2018-01-19] MEDS: methylPREDNISolone SOD SUCCI 125 MG/2 ML VIAL IV SCH (16:45)
[2018-01-19] MEDS ORDERED: valACYclovir HCL 1,000 MG TABLET PO PRN (17:16)
[2018-01-19] MEDS ORDERED: ALPRAZolam 0.25 MG TAB PO PRN (17:16)
[2018-01-19] MEDS ORDERED: IBUPROFEN 800 MG TAB PO PRN (17:16)
[2018-01-19] MEDS ORDERED: HYOSCYAMINE SULFATE 0.125 MG TAB PO PRN (17:16)
[2018-01-19] MEDS ORDERED: NALOXONE 0.4 MG/ML 1 ML VIAL IV PRN (17:17)
[2018-01-19] MEDS ORDERED: ONDANSETRON 4 MG/2 ML VIAL IVP PRN (17:17)
[2018-01-19] MEDS ORDERED: MAGNESIUM HYDROXIDE 2,400 MG/10 ML CUP PO PRN (17:17)
[2018-01-19] MEDS ORDERED: CALCIUM CARBONATE 500 MG CHEWABLE PO PRN (17:17)
[2018-01-19] MEDS ORDERED: LACTULOSE 20 GM/30 ML CUP PO PRN (17:17)
[2018-01-19] MEDS ORDERED: ACETAMINOPHEN TAB 325 MG TAB PO PRN (17:17)
[2018-01-19] MEDS ORDERED: MELATONIN 3 MG TABLET PO PRN (17:17)
[2018-01-19 17:55] LABS: Glucose,Whole Blood 279 mg/dL (75-99)
[2018-01-19] MEDS: ENOXAPARIN 40 MG/0.4 ML SYRINGE SQ SCH (18:02)
[2018-01-19] MEDS: INSULIN ASPART 100 UNIT/ML 1 ML 10 ML VIAL SQ SCH (18:02)
[2018-01-19] MEDS: BUDESONIDE 1 MG/2 ML NEBU INHALATION SCH (20:12)
[2018-01-19] MEDS ORDERED: IPRATROPIUM-ALBUTEROL 3 ML NEB INHALATION PRN (20:15)
[2018-01-19 21:10] LABS: Glucose,Whole Blood 218 mg/dL (75-99)
[2018-01-19] MEDS: ATORVASTATIN 80 MG TAB PO SCH (21:50)
[2018-01-19] MEDS: DULoxetine HCL 60 MG CAPSULE.DR PO SCH (21:50)
[2018-01-19] MEDS: DOXYCYCLINE HYCLATE 20 MG PO SCH (21:52)
[2018-01-20] MEDS: methylPREDNISolone SOD SUCCI 125 MG/2 ML VIAL IV SCH ×3 (00:07→13:49)
[2018-01-20 07:27] LABS: Glucose,Whole Blood 184 mg/dL (75-99)
[2018-01-20] MEDS: DOXYCYCLINE HYCLATE 20 MG PO SCH ×2 (08:33→17:56)
[2018-01-20] MEDS: ENOXAPARIN 40 MG/0.4 ML SYRINGE SQ SCH (08:33)
[2018-01-20] MEDS: INSULIN ASPART 100 UNIT/ML 1 ML 10 ML VIAL SQ SCH ×3 (08:33→17:55)
[2018-01-20] MEDS: DULoxetine HCL 60 MG CAPSULE.DR PO SCH ×2 (08:34→20:52)
[2018-01-20] MEDS: IPRATROPIUM-ALBUTEROL 3 ML NEB INHALATION SCH ×4 (08:45→19:44)
[2018-01-20] MEDS: BUDESONIDE 1 MG/2 ML NEBU INHALATION SCH ×2 (08:46→19:43)
[2018-01-20] MEDS ORDERED: INFLUENZA VACCINE (6 MOS+) 60 MCG/0.5 ML SYRINGE IM ONE (09:00)
[2018-01-20 11:28] LABS: Glucose,Whole Blood 222 mg/dL (75-99)
--- NOTE | 2018-01-20 15:38 | HP ---
HISTORY AND PHYSICAL DATE OF SERVICE: 01/20/2018 PRESENTING COMPLAINT: Short of breath. HISTORY OF PRESENTING COMPLAINT: This is a pleasant 62-year-old patient of Dr. Vaca whose chronic stable medical conditions include hyperlipidemia, history of colitis. The patient is an ex-smoker. The patient presents with worsening shortness of breath, cough, a little sputum, tired, rundown, wheezing. No fever. Patient's pulse ox 87% on room air on presentation and pretty labored. REVIEW OF SYSTEMS: CONSTITUTIONAL: Tired. HEENT: None. RESPIRATORY: As above. CARDIOVASCULAR: None. GASTROINTESTINAL: None. GENITOURINARY: None. MUSCULOSKELETAL: None. DERMATOLOGICAL: None. HEMATOLOGICAL: None. LYMPHATICS: None. PSYCHIATRY: Anxiety. NEUROLOGICAL: None. PAST MEDICAL HISTORY: 1. COPD. 2. Hyperlipidemia. 3. Colitis. PAST SURGICAL HISTORY: 1. Tonsillectomy. 2. Tubal ligation. PAST PSYCH HISTORY: Anxiety, depression. SOCIAL HISTORY: Patient stopped smoking in 2015. Lives with significant other. FAMILY HISTORY: Bipolar. HOME MEDICATIONS: 1. Valtrex 1000 mg p.o. daily p.r.n. 2. Motrin 800 mg t.i.d. p.r.n. 3. Levsin 0.125 p.o. daily p.r.n. 4. Doxycycline 20 mg p.o. b.i.d. 5. Cymbalta 60 mg b.i.d. 6. Lipitor 80 mg at bedtime. 7. Xanax 0.25 p.o. b.i.d. p.r.n. ALLERGIES: NONE. PHYSICAL EXAMINATION: VITAL SIGNS ON PRESENTATION: Temperature 98.6, pulse 100, respiration 22, blood pressure 103/61, pulse ox 87% on room air. GENERAL APPEARANCE: Average build. Sitting up. Tired-appearing. EYES: Pupils equal. Conjunctivae normal. HEENT: External appearance of nose and ears normal. Oral cavity normal. NECK: JVD not raised palpable. Mass not palpable. RESPIRATORY: Effort increased. LUNGS: Decreased breath sounds. Prolonged expiration and wheezing. CARDIOVASCULAR: First and second sounds normal. No edema. ABDOMEN: Soft, nontender. Liver and spleen not palpable. LYMPHATIC: No lymph node palpable in neck or axillae. PSYCHIATRY: Alert and oriented x3. Mood and affect normal. NEUROLOGICAL: Pupils equal. Cranial nerves grossly intact. Power and sensation grossly intact. INVESTIGATIONS: White count 11.2, potassium 3.2, BUN 25, creatinine 0.66. Accu-Cheks noted; 139, 279. Chest x-ray shows nil acute. ASSESSMENT: 1. Acute chronic obstructive pulmonary disease exacerbation in an ex-smoker. 2. Depression and anxiety not otherwise specified. 3. Hyperlipidemia. PLAN: Patient is put on nebulized bronchodilators and steroids. Home medications are resumed. Will give Lovenox for DVT prophylaxis. Care was discussed with the patient. MMODL / IJN: [id number] /
[2018-01-20 17:06] LABS: Glucose,Whole Blood 211 mg/dL (75-99)
[2018-01-20] MEDS: methylPREDNISolone SOD SUCCI 40 MG/ML 1 ML VIAL IV SCH ×2 (17:55→23:23)
[2018-01-20 20:51] LABS: Glucose,Whole Blood 180 mg/dL (75-99)
[2018-01-20] MEDS: ATORVASTATIN 80 MG TAB PO SCH (20:52)
[2018-01-21 07:21] LABS: Glucose,Whole Blood 192 mg/dL (75-99)
[2018-01-21] MEDS: DOXYCYCLINE HYCLATE 20 MG PO SCH ×2 (07:40→21:12)
[2018-01-21] MEDS: methylPREDNISolone SOD SUCCI 40 MG/ML 1 ML VIAL IV SCH ×3 (07:42→22:58)
[2018-01-21] MEDS: ENOXAPARIN 40 MG/0.4 ML SYRINGE SQ SCH (07:42)
[2018-01-21] MEDS: INSULIN ASPART 100 UNIT/ML 1 ML 10 ML VIAL SQ SCH ×3 (07:43→18:16)
[2018-01-21] MEDS: DULoxetine HCL 60 MG CAPSULE.DR PO SCH ×2 (07:43→21:12)
[2018-01-21] MEDS: IPRATROPIUM-ALBUTEROL 3 ML NEB INHALATION SCH ×4 (08:37→20:26)
[2018-01-21] MEDS: BUDESONIDE 1 MG/2 ML NEBU INHALATION SCH ×2 (08:38→20:26)
[2018-01-21 11:09] LABS: Glucose,Whole Blood 233 mg/dL (75-99)
[2018-01-21] MEDS: guaiFENesin 600 MG TABLET.ER PO SCH ×2 (16:07→22:58)
--- NOTE | 2018-01-21 16:48 | PN ---
PROGRESS NOTE DATE OF SERVICE: 01/21/2018. PRESENTING COMPLAINT: Short of breath. INTERVAL HISTORY: This ex-smoker presented with COPD exacerbation. Feels a bit better today. Less coughing, less wheezing. Ate a little bit of food. Did get up to the bathroom. REVIEW OF SYSTEMS: Done for constitutional, cardiovascular, GI, pulmonary; relevant findings as above. CURRENT MEDICATIONS: Reviewed. They include IV Solu-Medrol, DuoNeb. PHYSICAL EXAMINATION: Temperature 98.6, pulse 102, respiration 24, blood pressure 118/73, pulse ox 92% on 3 L. GENERAL APPEARANCE: Lying in bed, tired-appearing. EYES: Pupils equal. Conjunctivae normal. HEENT: External appearance of nose and ears normal. Oral cavity normal. NECK: JVD not raised. Mass not palpable. RESPIRATORY: Effort increased. LUNGS: Decreased breath sounds. Less wheezing. CARDIOVASCULAR: First and second sounds normal. No edema. ABDOMEN: Soft, nontender. Liver and spleen not palpable. PSYCHIATRY: Alert and oriented x3. Mood and affect slightly anxious-appearing. INVESTIGATIONS: Accu-Cheks are noted. ASSESSMENT: 1. Acute chronic obstructive pulmonary disease exacerbation in an ex-smoker. 2. Anxiety not otherwise specified. 3. Hyperlipidemia. PLAN: Continue current medication and treatment plan. Care was discussed with the patient. Encouraged to be out of bed. MMODL / IJN: [id number] /
[2018-01-21 17:30] LABS: Glucose,Whole Blood 175 mg/dL (75-99)
[2018-01-21 19:04] LABS: Anion Gap 19 mmol/L; Blood Urea Nitrogen 34 mg/dL (7-17); Calcium 9.8 mg/dL (8.4-10.2); Carbon Dioxide 24 mmol/L (22-30); Chloride 98 mmol/L (98-107); Glucose 172 mg/dL (74-99); Potassium 3.2 mmol/L (3.5-5.1); Sodium 141 mmol/L (137-145)
[2018-01-21] MEDS: ATORVASTATIN 80 MG TAB PO SCH (21:12)
[2018-01-21 21:33] LABS: Glucose,Whole Blood 176 mg/dL (75-99)
[2018-01-21] MEDS ORDERED: POTASSIUM CHLORIDE ER 20 MEQ TAB.ER PO STA (21:45)
[2018-01-22] MEDS: DOXYCYCLINE HYCLATE 20 MG PO SCH ×2 (07:23→21:22)
[2018-01-22] MEDS: ENOXAPARIN 40 MG/0.4 ML SYRINGE SQ SCH (07:23)
[2018-01-22] MEDS: guaiFENesin 600 MG TABLET.ER PO SCH ×2 (07:24→21:20)
[2018-01-22] MEDS: DULoxetine HCL 60 MG CAPSULE.DR PO SCH ×2 (07:24→21:21)
[2018-01-22] MEDS: methylPREDNISolone SOD SUCCI 40 MG/ML 1 ML VIAL IV SCH ×3 (07:24→23:41)
[2018-01-22 07:38] LABS: Glucose,Whole Blood 143 mg/dL (75-99)
[2018-01-22] MEDS: IPRATROPIUM-ALBUTEROL 3 ML NEB INHALATION SCH ×6 (07:48→23:46)
[2018-01-22] MEDS: BUDESONIDE 1 MG/2 ML NEBU INHALATION SCH ×2 (07:48→20:18)
[2018-01-22] MEDS: INSULIN ASPART 100 UNIT/ML 1 ML 10 ML VIAL SQ SCH ×3 (08:09→17:47)
[2018-01-22 09:29] LABS: Anion Gap 14 mmol/L; Blood Urea Nitrogen 36 mg/dL (7-17); Calcium 9.8 mg/dL (8.4-10.2); Carbon Dioxide 28 mmol/L (22-30); Chloride 101 mmol/L (98-107); Glucose 146 mg/dL (74-99); Potassium 4.2 mmol/L (3.5-5.1); Sodium 143 mmol/L (137-145)
[2018-01-22 12:30] LABS: Glucose,Whole Blood 173 mg/dL (75-99)
--- NOTE | 2018-01-22 13:46 | PN ---
PROGRESS NOTE DATE OF SERVICE: January 22, 2018. PRESENTING COMPLAINT: Short of breath. INTERVAL HISTORY: The patient presents with COPD exacerbation, still wheezing, cough, minimal sputum. Tired. Overall appetite is not good. Continues to go up to the bathroom. REVIEW OF SYSTEMS: Done for constitutional, cardiovascular, GI, pulmonary; relevant findings as above. CURRENT MEDICATIONS: Reviewed that include DuoNeb, IV Solu-Medrol, Pulmicort. PHYSICAL EXAMINATION: Temperature 97.7, pulse 92, respiration 20, blood pressure 111/69, pulse ox 93% on 3 L. GENERAL APPEARANCE: Lying in bed, awake, less tired. Eyes: Pupils equal. Conjunctivae normal. HEENT external appearance of nose and ears normal. Oral cavity normal. Neck JVD not raised. Mass not palpable. Respiratory effort increased. Lungs decreased breath sounds. Expiratory wheezing. Cardiovascular 1st and 2nd sounds normal. No edema. ABDOMEN: Soft, nontender. Liver and spleen not palpable. Psychiatry: Alert and oriented x3. Mood and affect anxious-appearing. INVESTIGATIONS: Potassium 4.2, BUN 36, creatinine 0.73. Accu-Cheks are noted. ASSESSMENT: 1. Acute severe chronic obstructive pulmonary disease exacerbation in an ex-smoker slow to respond. 2. Anxiety not otherwise specified. 3. Hyperlipidemia. PLAN: Continue patient on inhaled steroids, nebulized bronchodilators. We will increase the frequency to every 4 hours. Follow. MMODL / IJN: [id number] /
[2018-01-22 17:06] LABS: Glucose,Whole Blood 136 mg/dL (75-99)
[2018-01-22 20:55] LABS: Glucose,Whole Blood 161 mg/dL (75-99)
[2018-01-22] MEDS: ATORVASTATIN 80 MG TAB PO SCH (21:20)
[2018-01-23] MEDS: IPRATROPIUM-ALBUTEROL 3 ML NEB INHALATION SCH ×6 (03:08→23:54)
[2018-01-23] MEDS: BUDESONIDE 1 MG/2 ML NEBU INHALATION SCH ×2 (07:12→19:45)
[2018-01-23 07:28] LABS: Glucose,Whole Blood 162 mg/dL (75-99)
[2018-01-23] MEDS: DOXYCYCLINE HYCLATE 20 MG PO SCH ×2 (07:44→21:29)
[2018-01-23] MEDS: INSULIN ASPART 100 UNIT/ML 1 ML 10 ML VIAL SQ SCH ×3 (07:48→18:22)
[2018-01-23] MEDS: methylPREDNISolone SOD SUCCI 40 MG/ML 1 ML VIAL IV SCH ×2 (07:48→16:53)
[2018-01-23] MEDS: guaiFENesin 600 MG TABLET.ER PO SCH ×2 (07:48→21:29)
[2018-01-23] MEDS: ENOXAPARIN 40 MG/0.4 ML SYRINGE SQ SCH (07:48)
[2018-01-23] MEDS: DULoxetine HCL 60 MG CAPSULE.DR PO SCH ×2 (07:48→21:29)
[2018-01-23 12:22] LABS: Glucose,Whole Blood 219 mg/dL (75-99)
[2018-01-23] MEDS ORDERED: FLUCONAZOLE 100 MG TAB PO ONE (15:30)
[2018-01-23 17:08] LABS: Glucose,Whole Blood 148 mg/dL (75-99)
--- NOTE | 2018-01-23 19:05 | PN ---
PROGRESS NOTE DATE OF SERVICE: 01/23/18 PRESENT COMPLAINT: Short of breath. INTERVAL HISTORY: This patient presented with COPD exacerbation. Breathing is much improved. Eating better. Some pain in the throat when she coughs. Has been out of bed. REVIEW OF SYSTEMS: Done for constitutional, cardiovascular, GI, pulmonary, relevant findings as above. CURRENT MEDICATIONS: Reviewed that include IV Solu-Medrol and DuoNeb. PHYSICAL EXAMINATION: Temperature 97.8, pulse 90, respiration 16, blood pressure 102/65, pulse ox 94% on 3 L. GENERAL APPEARANCE: Sitting up, awake. Eyes: Pupils are equal. Conjunctivae normal. HEENT: External appearance of nose and ears normal. Oral cavity showing white patches in the pharynx. Neck JVD not raised. Mass not palpable. Respiratory effort increased. Lungs decreased breath sounds. Decreased wheezing. Cardiovascular 1st and 2nd sounds normal. No edema. ABDOMEN: Soft, nontender. Liver and spleen not palpable. Psychiatry: Alert and oriented x3. Mood and affect slightly anxious-appearing. INVESTIGATIONS: Accu-Cheks are noted. ASSESSMENT: 1. Acute severe chronic obstructive pulmonary disease exacerbation in an ex-smoker. 2. Oropharyngeal candidiasis from steroid use. 3. Anxiety, not otherwise specified. 4. Hyperlipidemia. PLAN: Encourage the patient to ambulate. We will give Diflucan 200 mg 1 dose now, then 100 mg daily starting tomorrow. I told patient to use warm water and salt gargle. Encouraged to ambulate. MMODL / IJN: [id number] /
[2018-01-23 20:45] LABS: Glucose,Whole Blood 154 mg/dL (75-99)
[2018-01-23] MEDS: ATORVASTATIN 80 MG TAB PO SCH (21:29)
[2018-01-24] MEDS: IPRATROPIUM-ALBUTEROL 3 ML NEB INHALATION SCH ×4 (04:27→16:03)
[2018-01-24 07:12] LABS: Glucose,Whole Blood 141 mg/dL (75-99)
[2018-01-24] MEDS: BUDESONIDE 1 MG/2 ML NEBU INHALATION SCH (07:14)
[2018-01-24] MEDS: INSULIN ASPART 100 UNIT/ML 1 ML 10 ML VIAL SQ SCH ×3 (07:55→17:13)
[2018-01-24] MEDS: DULoxetine HCL 60 MG CAPSULE.DR PO SCH (07:56)
[2018-01-24] MEDS: ENOXAPARIN 40 MG/0.4 ML SYRINGE SQ SCH (07:57)
[2018-01-24] MEDS: guaiFENesin 600 MG TABLET.ER PO SCH ×2 (07:57→09:10)
[2018-01-24] MEDS ORDERED: predniSONE 20 MG TAB PO SCH (09:00)
[2018-01-24] MEDS ORDERED: FLUCONAZOLE 100 MG TAB PO SCH (09:00)
[2018-01-24] MEDS: DOXYCYCLINE HYCLATE 20 MG PO SCH (09:10)
[2018-01-24 12:04] LABS: Glucose,Whole Blood 158 mg/dL (75-99)
[2018-01-24 15:09] VITALS: BP 118/60; PULSE 74; RESP 16; TEMP 98.1
--- NOTE | 2018-01-25 08:14 | DS ---
DISCHARGE SUMMARY DATE OF ADMISSION: 01/19/2018 DATE OF DISCHARGE: 01/24/2018 FINAL DIAGNOSES: 1. Acute severe chronic obstructive pulmonary disease exacerbation in an ex-smoker. 2. Oropharyngeal candidiasis from steroid use. 3. Anxiety, not otherwise specified. 4. Hyperlipidemia. 5. Acute hypoxic respiratory failure from chronic obstructive pulmonary disease, present on admission. HOSPITAL COURSE: This is an ex-smoker who presented with severe COPD exacerbation. Did respond well to nebulized bronchodilators, steroids. Also given Diflucan and oral candidiasis greatly improved. The patient doing better, up and about. The patient was pulse ox at 87% on room air by the time of discharge; hence, 2 L of oxygen has been given. ON EXAM: LUNGS: Decreased breath sounds. CARDIOVASCULAR: First and second sounds normal. DISCHARGE MEDICATIONS: 1. Xanax 0.25 p.o. b.i.d. p.r.n. 2. Lipitor 80 mg at bedtime. 3. Cymbalta 60 mg p.o. b.i.d. 4. Levsin 0.125 mg p.o. daily p.r.n. 5. Motrin 800 mg p.o. t.i.d. p.r.n. 6. Valtrex 1000 mg p.o. daily p.r.n. 7. Symbicort 160/4.5 one puff b.i.d. 8. Diflucan 100 mg p.o. daily for 7 days. 9. DuoNeb t.i.d. 10.Melatonin 3 mg at bedtime p.r.n. e hypoxic respiratory. 11.Prednisone taper. Follow up with Dr. Christophers on 01/27/2018. Home oxygen as directed. Discussion and discharge planning more than 35 minutes. MMODL / IJN: [id number] /
== END 2018-01-24 17:35 | disposition home health service (06) | DRG 190 ==
LOC: EC 12:39 → 4MS4W 14:28
PROVIDERS: ADMIT Hospitalist; ATTEND Hospitalist
DX: J44.1 Chronic obstructive pulmonary disease with (acute) exacerbation (principal); J96.01 Acute respiratory failure with hypoxia; B37.0 Candidal stomatitis; E78.5 Hyperlipidemia, unspecified; F32.9 Major depressive disorder, single episode, unspecified; F41.9 Anxiety disorder, unspecified; Z79.899 Other long term (current) drug therapy; Z87.891 Personal history of nicotine dependence; Z98.51 Tubal ligation status; Z98.890 Other specified postprocedural states; Z81.8 Family history of other mental and behavioral disorders
CPT/HCPCS: 36415; 71046; 80048; 80053; 82550; 82553; 83735; 84484; 85025; 85610; 85730; 93005; 94640; 94760; 96360; 99285

== ENCOUNTER → 2020-11-24 | Outpatient (CLI) | payer OTHER ==
--- NOTE | 2020-11-25 09:49 | MM ---
Reason for exam: screening (asymptomatic). Last mammogram was performed 3 years and 3 months ago. History: Patient is postmenopausal. Took hormonal contraceptives for 20 years beginning at age 18. Physical Findings: A clinical breast exam by your physician is recommended on an annual basis and results should be correlated with mammographic findings. MG Screening Mammo w CAD Bilateral CC and MLO view(s) were taken. Prior study comparison: August 22, 2017, bilateral MG 3d screening mammo w/cad. December 23, 2015, bilateral MG 3d screening mammo w/cad. The breast tissue is extremely dense which could obscure a lesion on mammography. Previous mammotome biopsy in the left breast at chronic nodularity in the left breast. There is no discrete abnormality. ASSESSMENT: Benign, BI-RAD 2 RECOMMENDATION: Routine screening mammogram of both breasts in 1 year.
== END | disposition home or self-care (01) ==
LOC: RADMAMWWP 15:03
PROVIDERS: ATTEND Family Medicine
DX: Z12.31 Encounter for screening mammogram for malignant neoplasm of breast (principal)
CPT/HCPCS: 77067

== ENCOUNTER 2021-04-10 09:22 | Day surgery (SDC) | payer OTHER ==
[~2021-04-10 09:22] MED LIST: LACTATED RINGERS 1,000 ML IV SCH
[2021-04-10 09:54] VITALS: TEMP 97.7
[2021-04-10] MEDS ORDERED: LIDOCAINE 1% (10MG/ML) FOR IV START INTRADERMA ONE (10:07)
[2021-04-10] MEDS ORDERED: PROPOFOL 10 MG/ML 20 ML VIAL IV ONE (10:21)
--- NOTE | 2021-04-10 10:41 | P.PCN ---
Date of Procedure: 04/10/21 Procedure(s) Performed: BRIEF HISTORY: Patient is a 65-year-old pleasant female scheduled for an elective colonoscopy as a part of prior history of colon polyps. Her last colonoscopy was 5 years ago. PROCEDURE PERFORMED: Colonoscopy with biopsy. PREOPERATIVE DIAGNOSIS: History of colon polyps. IV sedation per Anesthesia. PROCEDURE: After informed consent was obtained, the patient, was brought into the endoscopy unit. IV sedation was administered by Anesthesia under continuous monitoring. Digital rectal examination was normal. Initially the Olympus CF-160 flexible video colonoscope was then inserted in the rectum, gradually advanced into the cecum without any difficulty. Careful examination was performed as the scope was gradually being withdrawn. Ileocecal valve and the appendiceal orifice were visualized and appeared normal. Prep was excellent. Mucosa of the cecum, appeared normal. In the ascending colon there was a 3 mm and 4 mm sessile polyp removed by cold biopsy. Rest of ascending colon, transverse colon, descending colon, sigmoid colon, and rectum appeared normal. Retroflexion was performed in the rectum and no lesions were seen. The patient tolerated the procedure well. IMPRESSION: 3 mm and 4 mm ascending colon polyp status post-biopsy Rest of the colon appeared normal RECOMMENDATIONS: Findings of this examination were discussed with the patient as well as a family.. She was advised to follow with the biopsy shows. If the biopsy shows an adenoma she can have a repeat colonoscopy in 5 years
[2021-04-10 11:05] VITALS: BP 114/59; PULSE 58; RESP 16
== END 2021-04-10 11:23 | disposition home or self-care (01) ==
LOC: ORWHC2ENDO 09:22
PROVIDERS: ATTEND Internal Medicine Gastroenterology
DX: Z12.11 Encounter for screening for malignant neoplasm of colon (principal); D12.2 Benign neoplasm of ascending colon; E78.5 Hyperlipidemia, unspecified; J44.9 Chronic obstructive pulmonary disease, unspecified; Z79.51 Long term (current) use of inhaled steroids; Z79.82 Long term (current) use of aspirin; Z79.899 Other long term (current) drug therapy
CPT/HCPCS: 88305; 45380; J2704

== ENCOUNTER → 2021-11-26 | Outpatient (CLI) | payer MEDICARE, OTHER ==
--- NOTE | 2021-11-27 13:23 | MM ---
Reason for exam: screening (asymptomatic). Last mammogram was performed 1 year ago. History: Patient is postmenopausal. Took hormonal contraceptives for 20 years beginning at age 18. Physical Findings: A clinical breast exam by your physician is recommended on an annual basis and results should be correlated with mammographic findings. MG 3D Screening Mammo W/Cad Bilateral CC and MLO view(s) were taken. Prior study comparison: November 24, 2020, bilateral MG screening mammo w CAD. August 22, 2017, bilateral MG 3d screening mammo w/cad. The breast tissue is heterogeneously dense. This may lower the sensitivity of mammography. Stable benign calcifications. Previous mammotome biopsy in the left breast. No significant changes when compared with prior studies. ASSESSMENT: Benign, BI-RAD 2 RECOMMENDATION: Routine screening mammogram of both breasts in 1 year.
== END | disposition home or self-care (01) ==
LOC: RADMAMWWP 14:35
PROVIDERS: ATTEND Family Medicine
DX: Z12.31 Encounter for screening mammogram for malignant neoplasm of breast (principal); Z78.0 Asymptomatic menopausal state
CPT/HCPCS: 77063; 77067